=== PATIENT | male | born 1955 | race Caucasian/White ===

== ENCOUNTER 2017-07-06 15:02 | Inpatient (IN) | payer OTHER ==
[~2017-07-06] VITALS: Ht 170.2 cm; Wt 74.6 kg
[2017-07-06] VITALS (10 sets, daily range): BP systolic 102–122; BP diastolic 69–89
[2017-07-06] MEDS ORDERED: MORPHINE SULF INJ 2 MG/ML SYRINGE 1ML ONE ×3 (15:03→15:43)
[2017-07-06] MEDS ORDERED: LIDOCAINE 2%HCL (LOCAL ANESTH.) INJ 20ML MDV ONE (15:04)
[2017-07-06] MEDS ORDERED: IOHEXOL 350 MG/ML 100ML IJ ONE (15:04)
[2017-07-06] MEDS ORDERED: ONDANSETRON HCL 4 MG/2 ML VIAL ONE (15:05)
[2017-07-06] MEDS ORDERED: ENOXAPARIN SOD 30 MG/0.3 ML SYRINGE ONE (15:06)
[2017-07-06] MEDS ORDERED: ASPirin 81 mg TAB PO ONE ×2 (15:15→15:30)
[2017-07-06] MEDS ORDERED: ENOXAPARIN SOD 30 MG/0.3 ML SYRINGE IV ONE ×2 (15:15→15:30)
[2017-07-06] MEDS ORDERED: ANGIOMAX 250 MG VIAL IV ONE (15:21)
[2017-07-06] MEDS ORDERED: SODIUM CHL 0.9% 50 ML ONE (15:22)
[2017-07-06] MEDS ORDERED: MORPHINE SULF INJ 2 MG/ML SYRINGE 1ML IV ONE ×2 (15:30)
[2017-07-06] MEDS ORDERED: ONDANSETRON HCL 4 MG/2 ML VIAL IV ONE (15:30)
[2017-07-06 15:49] LABS: Basophils # (auto) 0 uL; Basophils % (auto) 0.3 % (0.0-2.0); Eosinophils # (auto) 0 uL; Eosinophils % (auto) 0.1 % (0.0-7.0); Hematocrit 44.7 % (41.0-53.0); Hemoglobin 14.5 g/dL (13.5-17.5); Lymphocytes # (auto) 1.5 uL; Lymphocytes % (auto) 14.6 % (10.0-50.0); Mean Corpuscular Hemoglobin 30.7 pg (28.0-32.0); Mean Corpuscular Hgb Conc. 32.5 g/dL (32.0-36.0); Mean Corpuscular Volume 94.5 fL (80.0-100.0); Mean Platelet Volume 8.9 fL (6.9-10.8); Monocytes # (auto) 0.4 uL; Monocytes % (auto) 3.8 % (0.0-12.0); Neutrophils # (auto) 8.4 uL; Neutrophils % (auto) 81.2 % (37.0-80.0); Nucleated Red Blood Cells % 0.1 %; Platelet Count (auto) 331 10^3/uL (140-450); Red Cell Distribution Width 14.3 % (11.8-14.3); White Blood Cell 10.3 10^3/uL (4.4-10.8)
[2017-07-06] MEDS ORDERED: ATROPINE SULF 0.5 MG/5ML SYR ONE (15:49)
[2017-07-06 15:51] LABS: INR 0.95 (0.9-1.15); Partial Thromboplastin Time 24.3 sec (22.64-33.71); Prothrombin Time 10.3 sec (9.37-12.3)
[2017-07-06] MEDS ORDERED: TICAGRELOR 90 MG TAB ONE (15:51)
[2017-07-06 15:54] LABS: Potassium 4.2 mmol/L (3.5-5.1)
[2017-07-06 15:55] LABS: Albumin 3.5 g/dL (3.4-5.0); BUN/Creatinine Ratio 11.6; Bilirubin, Total 0.5 mg/dL (0.2-1.0); Calcium 8.8 mg/dL (8.5-10.1); Magnesium 2.3 mg/dL (1.6-2.6); Total Protein 7.3 g/dL (6.4-8.2)
[2017-07-06] MEDS ORDERED: SODIUM CHLORIDE 0.9% 1,000 ML IV ONE (16:34)
[2017-07-06] MEDS ORDERED: HYDROcodone-ACET 5/325MG TAB PO PRN (16:45)
[2017-07-06] MEDS ORDERED: ACETAMINOPHEN 500 MG TAB PO PRN (16:45)
[2017-07-06] MEDS ORDERED: DEXTROSE (50%) 50ML SYRG IV PRN (16:45)
[2017-07-06] MEDS ORDERED: MORPHINE SULF INJ 2 MG/ML SYRINGE 1ML IV PRN ×2 (16:45)
[2017-07-06] MEDS ORDERED: METOPROLOL SUCCINATE XL 50 MG TAB PO ONE (16:45)
[2017-07-06] MEDS ORDERED: NITROGLYCERIN 0.4 MG SL TAB SL PRN (16:45)
[2017-07-06] MEDS ORDERED: ONDANSETRON HCL 4 MG/2 ML VIAL IV PRN (16:45)
[2017-07-06] MEDS: ACCU-CHEK COMFORT CURVE STRIP VI SCH ×2 (17:00→22:15)
[2017-07-06] MEDS ORDERED: SODIUM CHLORIDE 0.9% 500 ML IV ONE (17:00)
[2017-07-06] MEDS: InsuLIN REG 1unit/0.01ml Soln (100units/ml) SC SCH ×2 (17:00→22:00)
[2017-07-06] MEDS: SODIUM CHLORIDE 0.9% 1,000 ML IV SCH (17:00)
[2017-07-06 17:06] LABS: Cholesterol 200 mg/dL (< 200); HDL Cholesterol 54 mg/dL (40-59); LDL Cholesterol 150 mg/dL (< 100); Triglycerides 166 mg/dL (< 150)
[2017-07-06] MEDS ORDERED: PRE1T PO (19:39)
[2017-07-06] MEDS: ATORVASTATIN 20 MG TAB PO SCH (22:15)
[2017-07-06] MEDS: TICAGRELOR 60 MG TAB PO SCH (22:15)
[2017-07-07] VITALS (22 sets, daily range): BP systolic 82–130; BP diastolic 43–82
[2017-07-07] MEDS ORDERED: MESA1.2T PO (00:03)
[2017-07-07] MEDS ORDERED: DICY10CA12 PO (00:03)
[2017-07-07] MEDS ORDERED: PRE5T PO (00:03)
[2017-07-07] MEDS: SODIUM CHLORIDE 0.9% 1,000 ML IV SCH ×3 (01:00→14:56)
[2017-07-07 03:48] LABS: Basophils # (auto) 0.1 uL; Basophils % (auto) 0.4 % (0.0-2.0); Eosinophils # (auto) 0.1 uL; Eosinophils % (auto) 0.4 % (0.0-7.0); Hematocrit 37.1 % (41.0-53.0); Hemoglobin 12.4 g/dL (13.5-17.5); Lymphocytes # (auto) 1.3 uL; Lymphocytes % (auto) 9.7 % (10.0-50.0); Mean Corpuscular Hemoglobin 30.7 pg (28.0-32.0); Mean Corpuscular Hgb Conc. 33.4 g/dL (32.0-36.0); Mean Platelet Volume 7.8 fL (6.9-10.8); Monocytes # (auto) 1.4 uL; Monocytes % (auto) 10.2 % (0.0-12.0); Neutrophils # (auto) 10.6 uL; Neutrophils % (auto) 79.3 % (37.0-80.0); Platelet Count (auto) 292 10^3/uL (140-450); Red Cell Distribution Width 13.9 % (11.8-14.3); White Blood Cell 13.4 10^3/uL (4.4-10.8)
[2017-07-07 04:21] LABS: BUN/Creatinine Ratio 13.9; Calcium 8.2 mg/dL (8.5-10.1); Potassium 4.3 mmol/L (3.5-5.1)
[2017-07-07] MEDS: ACCU-CHEK COMFORT CURVE STRIP VI SCH ×4 (07:00→22:26)
[2017-07-07] MEDS: InsuLIN REG 1unit/0.01ml Soln (100units/ml) SC SCH ×4 (07:00→22:26)
[2017-07-07] MEDS ORDERED: METOPROLOL SUCCINATE XL 50 MG TAB PO SCH (10:00)
[2017-07-07] MEDS: PANTOPRAZOLE 40 MG/10 ML VIAL IV SCH (10:15)
[2017-07-07] MEDS: ASPirin 81 mg TAB PO SCH (10:15)
[2017-07-07] MEDS: TICAGRELOR 60 MG TAB PO SCH ×2 (10:15→22:26)
[2017-07-07] MEDS ORDERED: SODIUM CHLORIDE 0.9% 500 ML IV ONE (13:30)
[2017-07-07] MEDS ORDERED: predniSONE 5 MG TAB PO SCH (16:45)
[2017-07-07] MEDS: predniSONE 20 MG TAB PO SCH (16:50)
[2017-07-07] MEDS: ATORVASTATIN 20 MG TAB PO SCH (22:26)
[2017-07-08] VITALS (10 sets, daily range): BP systolic 82–101; BP diastolic 49–66
[2017-07-08] MEDS: ACCU-CHEK COMFORT CURVE STRIP VI SCH ×3 (06:51→17:00)
[2017-07-08] MEDS: InsuLIN REG 1unit/0.01ml Soln (100units/ml) SC SCH ×3 (06:51→17:00)
[2017-07-08 07:27] LABS: Basophils # (auto) 0 uL; Basophils % (auto) 0.1 % (0.0-2.0); Eosinophils # (auto) 0 uL; Eosinophils % (auto) 0.3 % (0.0-7.0); Hematocrit 33.8 % (41.0-53.0); Hemoglobin 11.3 g/dL (13.5-17.5); Lymphocytes # (auto) 1.6 uL; Lymphocytes % (auto) 11.7 % (10.0-50.0); Mean Corpuscular Hemoglobin 30.9 pg (28.0-32.0); Mean Corpuscular Hgb Conc. 33.5 g/dL (32.0-36.0); Mean Corpuscular Volume 92.1 fL (80.0-100.0); Mean Platelet Volume 8.3 fL (6.9-10.8); Monocytes # (auto) 1.1 uL; Monocytes % (auto) 7.7 % (0.0-12.0); Neutrophils # (auto) 11.1 uL; Neutrophils % (auto) 80.2 % (37.0-80.0); Nucleated Red Blood Cells % 0.1 %; Platelet Count (auto) 249 10^3/uL (140-450); Red Cell Distribution Width 14.1 % (11.8-14.3); White Blood Cell 13.8 10^3/uL (4.4-10.8)
[2017-07-08 07:56] LABS: Albumin 2.5 g/dL (3.4-5.0); BUN/Creatinine Ratio 13.8; Bilirubin, Total 0.4 mg/dL (0.2-1.0); Calcium 8.1 mg/dL (8.5-10.1); Magnesium 2.2 mg/dL (1.6-2.6); Potassium 3.8 mmol/L (3.5-5.1); Total Protein 5.6 g/dL (6.4-8.2)
[2017-07-08] MEDS ORDERED: METOPROLOL SUCCINATE XL 50 MG TAB PO SCH ×2 (10:00)
[2017-07-08] MEDS: PANTOPRAZOLE 40 MG/10 ML VIAL IV SCH (10:28)
[2017-07-08] MEDS: ASPirin 81 mg TAB PO SCH (10:29)
[2017-07-08] MEDS: predniSONE 20 MG TAB PO SCH (10:30)
[2017-07-08] MEDS: TICAGRELOR 60 MG TAB PO SCH (10:31)
[2017-07-08] MEDS ORDERED: cefTRIAXone 1GM/50ML D5W 50 ML IV ONE ×2 (12:15→13:30)
[2017-07-08 19:59] LABS: Urine Bilirubin Negative (Negative); Urine Blood Negative /uL (Negative); Urine Color Yellow (Yellow); Urine Glucose 1+ mg/dL (Normal); Urine Ketone Negative (Negative); Urine Nitrite Negative (Negative); Urine RBC <1 /hpf (0 - 3); Urine Urobilinogen Normal (Negative); Urine pH 5.5 (5.0-8.0)
== END 2017-07-08 19:30 | disposition home or self-care (01) | DRG 247 ==
LOC: ER 15:02 → EDBD 15:02 → ICU WEST 15:03 → TELE-WESTW 07-08 08:56
PROVIDERS: ADMIT Internal Medicine Cardiovascular Disease; ATTEND Internal Medicine Cardiovascular Disease
PROC: 4A023N7 Measurement of Cardiac Sampling and Pressure, Left Heart, Percutaneous Approach (ICD-10-PCS; principal; 2017-07-06)
PROC: 027135Z Dilation of Coronary Artery, Two Arteries with Two Drug-eluting Intraluminal Devices, Percutaneous Approach (ICD-10-PCS; 2017-07-06)
PROC: B2111ZZ Fluoroscopy of Multiple Coronary Arteries using Low Osmolar Contrast (ICD-10-PCS; 2017-07-06)
DX: I21.19 ST elevation (STEMI) myocardial infarction involving other coronary artery of inferior wall (principal); I95.9 Hypotension, unspecified; E11.9 Type 2 diabetes mellitus without complications; E78.5 Hyperlipidemia, unspecified; I25.10 Atherosclerotic heart disease of native coronary artery without angina pectoris; Z79.82 Long term (current) use of aspirin; Z79.899 Other long term (current) drug therapy; Z82.49 Family history of ischemic heart disease and other diseases of the circulatory system; Z95.5 Presence of coronary angioplasty implant and graft
CPT/HCPCS: 36415; 71010; 80048; 80053; 80061; 81001; 82962; 83036; 83605; 83735; 84443; 84484; 85025; 85610; 85730; 87081; 87086; 92928; 93005; 93458; 94761; 99152; 99153; C1874; C1887; C9113; J0461; J0696; J1815; J2405